=== PATIENT | male | born 1975 | race Caucasian/White ===

== ENCOUNTER 2020-11-08 13:21 | Emergency (ER) | payer BC, OTHER ==
[~2020-11-08] VITALS: Ht 172.7 cm; Wt 81.8 kg
[2020-11-08] MEDS ORDERED: KETOROLAC 30 MG/ML 1ML VIAL IV ONE (13:50)
[2020-11-08] MEDS ORDERED: NS 1,000 ML IV ONE (13:50)
[2020-11-08] MEDS ORDERED: ONDANSETRON 4MG/2ML VIAL IV ONE (13:50)
[2020-11-08 14:08] LABS: BASO # 0.1 10^3/uL (0.0-0.2); BASO % 0.8 % (0.0-1.0); HEMATOCRIT 47.8 % (42.0-52.0); HEMOGLOBIN 15.7 g/dl (13.5-17.5); LYMPH # 1.6 10^3/uL (1.5-5.0); LYMPH % 20.6 % (24.0-44.0); MEAN CORPUSCULAR HEMOGLOBIN 29.5 pg (27.0-33.0); MEAN CORPUSCULAR HGB CONC 32.8 g/dl (32.0-36.5); MEAN CORPUSCULAR VOLUME 89.7 fl (80.0-96.0); MONO # 0.6 10^3/uL (0.0-0.8); MONO % 7.9 % (2.0-8.0); NEUTROPHILS # 5.4 10^3/uL (1.5-8.5); NEUTROPHILS % 70.3 % (36.0-66.0); PLATELET COUNT, AUTOMATED 224 10^3/uL (150-450); RED BLOOD COUNT 5.33 10^6/uL (4.30-6.10); WHITE BLOOD COUNT 7.6 10^3/uL (4.0-10.0)
[2020-11-08 14:40] LABS: BILIRUBIN, URINE MANUAL NEGATIVE (NEGATIVE); GLUCOSE, URINE (UA) MANUAL NEGATIVE (NEGATIVE); KETONE, URINE MANUAL NEGATIVE (NEGATIVE); UROBILINOGEN, URINE MANUAL NORMAL (NORMAL)
[2020-11-08 14:41] LABS: ALBUMIN 4.1 GM/DL (3.2-5.2); ALT/SGPT 33 U/L (12-78); BILIRUBIN,DIRECT < 0.1 MG/DL (0.0-0.2); BILIRUBIN,TOTAL 0.6 MG/DL (0.2-1.0); LIPASE 114 U/L (73-393)
[2020-11-08 14:56] LABS: BACTERIA, URINE NONE SEEN; SQUAMOUS EPITHELIAL CELL URINE SMALL AMOUNT /hpf (SMALL AMT)
--- NOTE | 2020-11-08 14:56 | REP ---
INDICATION: left flank pain/abd pain COMPARISON: None TECHNIQUE: Axial noncontrast images from the lung bases to the pubic symphysis with coronal and sagittal reformations. This CT examination was performed using the following dose reduction techniques: Automated exposure control, adjustment of mA and/or kv according to the patient's size, and use of iterative reconstruction technique. FINDINGS: Moderate acute left-sided obstructive uropathy with a edematous enlargement to the kidney, perinephric stranding, and hydroureteronephrosis with an obstructing calculus in the proximal ureter (series 201; images 65-66). Few nonobstructing left intrarenal calculi measure up to 2 mm and 1.2 cm left renal cyst also identified. Right kidney/ureter and bladder are normal. Lung bases are clear. Visualized heart and pericardium normal. Liver, spleen, pancreas, gallbladder, and bilateral adrenal glands are normal. The enteric system is unremarkable and without obstruction or acute inflammatory process. Normal terminal ileum and cecum identified in the right lower quadrant. Evidence for prior appendectomy noted. Pelvis demonstrates normal bladder and age-appropriate uterus/adnexa. No ascites. No free air. No adenopathy. No focal inflammatory stranding. Abdominal aorta without aneurysm. Musculoskeletal structures demonstrate focal degenerative changes at L5-S1. IMPRESSION: 1. Acute left-sided obstructive uropathy with a 5 mm obstructing calculus in the proximal left ureter along with few nonobstructing left renal calculi up to 2 mm and 1.2 cm left renal cyst. <Electronically signed by Emil Alegre > 11/08/20 [id number]
[2020-11-08 14:57] LABS: AMORPHOUS SEDIMENT, URINE LARGE AMOUNT (NEGATIVE); HYALINE CAST, URINE NONE SEEN /lpf (0-1); MUCUS, URINE SMALL AMOUNT (NEGATIVE)
[2020-11-08] MEDS ORDERED: NORCO, ANEXSIA 5/325MG TABLET (HYDROcodone/ACETAMINOPHEN) PO ONE (15:45)
[2020-11-08] MEDS ORDERED: CALCIUM CARBONATE 500 MG CHEW U/D PO ONE (15:45)
[2020-11-08 15:54] VITALS: BP 174/104
[2020-11-08] MEDS ORDERED: KETO10TAB PO (15:54)
[2020-11-08] MEDS ORDERED: CIPR-249 PO (15:54)
[2020-11-08] MEDS ORDERED: ONDA4TAB6 PO (15:54)
[2020-11-08] MEDS ORDERED: FLOM0.4C39 PO (15:54)
== END 2020-11-08 16:04 | disposition home or self-care (01) ==
LOC: M ED 13:21
DX: N10 Acute pyelonephritis (principal); N20.1 Calculus of ureter; I10 Essential (primary) hypertension; K21.9 Gastro-esophageal reflux disease without esophagitis; Z79.899 Other long term (current) drug therapy; F17.210 Nicotine dependence, cigarettes, uncomplicated
CPT/HCPCS: 74176; 80047; 80076; 81000; 83690; 85025; 87086; 96361; 96374; 96375; 99284; J1885; J2405